=== PATIENT | male | born 1975 | race Caucasian/White ===

== ENCOUNTER 2017-10-08 11:34 | Emergency (ER) | payer OTHER ==
[2017-10-08 12:13] LABS: NEGATIVE OBC STREP NEG; POSITIVE OBC STREP POS
== END 2017-10-08 12:29 | disposition home or self-care (01) ==
LOC: ER 11:34
DX: J32.9 Chronic sinusitis, unspecified (principal)
CPT/HCPCS: 87070; 87880; 99283